=== PATIENT | male | born 1955 ===

== ENCOUNTER 2017-03-25 21:26 | Observation (INO) | payer SELFPAY ==
[2017-03-25 21:31] VITALS: RESP 16
--- NOTE | 2017-03-25 23:15 | ED PDOC ---
HPI: Psych/Substance Abuse Time Seen by Provider: 03/25/17 21:34 Chief Complaint (Nursing): Alcohol Ingestion Chief Complaint (Provider): Alcohol intoxication History Per: Patient History/Exam Limitations: no limitations Modifying Factor(s): Alcohol Additional Complaint(s): Shilo Olmedo, a 61 year old male is brought into the ED for alcohol intoxication. The patient admits to drinking alcohol. Past Medical History Reviewed: Historical Data, Nursing Documentation, Vital Signs Vital Signs: Last Vital Signs Temp 98.0 F 03/25/17 21:29 Pulse 79 03/25/17 21:29 Resp 16 03/25/17 21:29 BP 142/100 H 03/25/17 21:29 Pulse Ox 100 03/25/17 21:29 - Medical History PMH: No Chronic Diseases - Family History Family History: States: Unknown Family Hx - Home Medications Home Medications: Ambulatory Orders Medication Instructions Recorded No Known Home Med 03/25/17 - Allergies Allergies/Adverse Reactions: Allergies Allergy/AdvReac Type Severity Reaction Status Date / Time No Known Allergies Allergy Verified 03/25/17 21:31 Review of Systems Review Of Systems: ROS cannot be obtained secondary to pt's inabilty to answer questions. Physical Exam - Reviewed Nursing Documentation Reviewed: Yes Vital Signs Reviewed: Yes - Physical Exam Appears: Positive for: Non-toxic, No Acute Distress Head Exam: Positive for: ATRAUMATIC, NORMAL INSPECTION, NORMOCEPHALIC Skin: Positive for: Normal Color, Warm, Dry Eye Exam: Positive for: Normal appearance, EOMI, PERRL ENT: Positive for: Normal ENT Inspection Neck: Positive for: Normal, Painless ROM, Supple Cardiovascular/Chest: Positive for: Regular Rate, Rhythm, Chest Non Tender. Negative for: Tachycardia Respiratory: Positive for: Normal Breath Sounds. Negative for: Wheezing, Respiratory Distress Gastrointestinal/Abdominal: Positive for: Normal Exam, Bowel Sounds, Soft. Negative for: Tenderness, Guarding, Rebound Back: Positive for: Normal Inspection Extremity: Positive for: Normal ROM. Negative for: Tenderness, Pedal Edema, Deformity, Swelling Neurologic/Psych: Negative for: Alert - ECG O2 Sat by Pulse Oximetry: 100 (RA) Pulse Ox Interpretation: Normal Medical Decision Making Medical Decision Makin Initial Impression: 61 year old male presenting with alcohol intoxication Initial Plan: * Alcohol serum * Glucose Blood POC * Admit 2133 * Reevaluation 2134 Patient will be admitted to ED observation Scribe Attestation Documented by Whit Franklin acting as a scribe for Alejandra Ocampo MD. Provider Attestation All medical record entries made by the Scribe were at my direction and personally dictated by me. I have reviewed the chart and agree that the record accurately reflects my personal performance of the history, physical exam, medical decision making, and the department course for this patient. I have also personally directed, reviewed, and agree with the discharge instructions and disposition. ED OBSERVATION Date of observation admission: 03/25/17 Time of observation admission: 21:34 - Observation admission statement Patient is being placed in observation because:: Pending clinical sobriety. - Progress Note Progress Note: 03/25/17 23:24 Patient is resting comfortably. Disposition - Clinical Impression Clinical Impression: Alcohol abuse with intoxication - Disposition Disposition: Transfer of Care Disposition Time: 00:00 Condition: STABLE Patient Signed Over To: Ru Espinoza Handoff Comments: Pending sobriety.
--- NOTE | 2017-03-26 00:08 | ED PDOC ---
- ECG O2 Sat by Pulse Oximetry: 100 (RA) Pulse Ox Interpretation: Normal Medical Decision Making Medical Decision Making: Patient signed out to provider at [address] Ocampo pending sobriety. Scribe Attestation Documented by Whit Franklin acting as a scribe for Ru Espinoza MD. Provider Attestation All medical record entries made by the Scribe were at my direction and personally dictated by me. I have reviewed the chart and agree that the record accurately reflects my personal performance of the history, physical exam, medical decision making, and the department course for this patient. I have also personally directed, reviewed, and agree with the discharge instructions and disposition. Disposition - Clinical Impression Clinical Impression: Alcohol abuse - POA Present On Arrival: None - Disposition Disposition: Routine/Home Disposition Time: 01:45 Condition: STABLE ED OBSERVATION Date of observation admission: 03/26/17 Time of observation admission: 12:00 - Observation admission statement Patient is being placed in observation because:: pending sobriety. - Progress Note Progress Note: 03/26/17 0130 Patient awake, alert, walking, steady gait. Sober for discharge.
[2017-03-26 03:09] VITALS: BP 122/78; PULSE 86; TEMP 98
[2017-03-26 03:36] VITALS: O2SAT 100
== END 2017-03-26 02:01 | disposition home or self-care (01) ==
LOC: H.ER 21:26 → H.EROBSV 21:34
PROVIDERS: ADMIT Emergency Medicine; ATTEND Emergency Medicine
DX: F10.129 Alcohol abuse with intoxication, unspecified (principal); Y90.6 Blood alcohol level of 120-199 mg/100 ml
CPT/HCPCS: 36415; 82948; 99282; G0378; G0480